=== PATIENT | female | born 2005 | race Caucasian/White ===

== ENCOUNTER → 2024-02-13 09:59 | Outpatient (REF) | payer BC, SELFPAY | LOC: CLAB 09:59 | PROVIDERS: ATTENDING PHYSICIAN Emergency Medicine | DX: J02.9 Acute pharyngitis, unspecified (principal) | CPT/HCPCS: 87070 ==

== ENCOUNTER 2024-02-13 10:25 | Emergency (ER) | payer BC, SELFPAY ==
[2024-02-13 10:29] VITALS: BP 149/85
--- NOTE | 2024-02-13 11:00 | ED.GENMED ---
History of Present Illness
General
Chief Complaint: Throat Problem
Time Seen by Provider: 02/13/24 10:30
Travel History
Have you had any contact with someone who has COVID-19?: No
Do you have any symptoms of coronavirus? Fever > 100 degrees, chills, cough, shortness of breath, sore throat, loss of taste or smell, muscle aches, or headache?: Yes
Symptoms:: see note
History of Present Illness
History of Present Illness:
19-year-old otherwise healthy female presents to the emergency department for evaluation of sore throat over the past 3 to 4 days. Her mother provided her with a old prescription of amoxicillin of which she is taking 4 doses and symptoms have not
improved. Denies any coughing, fevers, or chills. Voice appears to be somewhat altered today.
Past History
Past History
ED Past Medical History: Asthma
ED Past Surgical History: None
Social History
Tobacco: Non-smoker
Alcohol: None
Drug: None
Personal: Single
Living: with family
Employment: Student
Family History
Family History: Asthma
Review of Systems
Review of Systems
Allergies reviewed?: Yes
All Other Systems: ROS reviewed and negative except as documented in HPI and ROS
Phy Exam
Physical Exam
Physical Exam:
GEN: Well appearing, NAD, WDWN
HEENT: Oral mucosa moist, no scleral icterus. Massive uvular edema, uvula is midline however there is asymmetric erythema of the soft palate primarily on the left, no uvular deviation. Oropharynx is minimally visualized, no exudates
Cardiac: Regular rate
Lung: No respiratory distress, no tachypnea
MSK: No gross deformity or injuries
Skin: Good color, no pallor or jaundice, no rashes
Neuro: AO x3, moves all extremities freely
Psych: Calm, cooperative
Course
Orders/Labs/Results
Orders:
Orders
02/13/24 10:58
CT Neck With Iv Contrast Urgent
Comment:
Reason For Exam: suspected parapharyngeal abscess
Dexamethasone Sod Phosphate [Decadron] 6 mg IV NOW STA
Ketorolac [Toradol] 15 mg IV NOW STA
02/13/24 10:59
Test Result ONCE
02/13/24 11:02
Basic Metabolic Panel Urgent
Complete Blood Count/With Diff Urgent
HCG, Serum Qualitative Screen Urgent
02/13/24 13:05
Ampicillin/Sulbactam 3 G [Unasyn] 3 gm 0.9% Sodium Chloride 100 ml [Nss] 100 ml IV NOW
02/13/24 13:15
Ampicillin/Sulbactam 3 G [Unasyn] 3 gm 0.9% Sodium Chloride 100 ml [Nss] 100 ml IV NOW
Abnormal Lab Results
02/13/24
11:02
WBC 16.0 H 10^3/uL
(4.8-10.8)
MCHC 32.1 L g/dL
(33.0-37.0)
Absolute Neuts (auto) 12.4 H 10^3/uL
(1.4-6.5)
Absolute Monos (auto) 0.9 H 10^3/uL
(0.1-0.6)
Neutrophils % 77.4 H %
(42.2-75.2)
Lymphocytes % 14.0 L %
(20.5-51.1)
02/13/24 11:02
02/13/24 11:02
Vital Signs
Initial and Last Documented VS:
Initial Vital Signs
Temp Pulse Resp BP Pulse Ox
98.4 F 110 16 149/85 98
02/13/24 10:29 02/13/24 10:29 02/13/24 10:29 02/13/24 10:29 02/13/24 10:29
Last Documented Vital Signs
Temp Pulse Resp BP Pulse Ox
98.4 F 110 16 149/85 98
02/13/24 10:29 02/13/24 10:29 02/13/24 10:29 02/13/24 10:29 02/13/24 10:29
MDM/Problems Addressed
MDM/Problems Addressed:
CT was obtained due to the massive uvular edema and inability to visualize the oropharynx to rule out parapharyngeal abscess, fortunately this revealed no fluid collections. Patient's symptoms did improve mildly with IV NSAIDs and steroids. Will
start her on Augmentin and discontinue amoxicillin, 5-day course of steroids will be sent with the patient as well. She is tolerating secretions and oral fluids this is suitable for discharge
*Critical Care Note
Total Time (30-74mins, 75-104mins- exclusive of procedures): Not Applicable
ED Attending Note
-
Portions of this chart may have been created with voice recognition software.� Occasional wrong word or��sound alike� substitutions may have occurred due to the inherent limitations of voice recognition software.
Discharge Plan
Departure
Patient Disposition: Home (Routine Discharge)
Date of Disposition: 02/13/24
Time of Disposition: 13:05
Patient with high blood pressure during this ER visit?: No
Discharge Problem:
Uvulitis
Instructions: Sore Throat, Adult (DC)
Prescriptions:
New
amoxicillin-pot clavulanate 875-125 mg tablet
1 tab PO BID 7 Days Qty: 14 0RF
prednisone 20 mg tablet
40 mg PO DAILY 5 Days Qty: 10 0RF
No Action
cetirizine 10 MG tablet
10 mg PO DAILY
albuterol sulfate 1 PUFF HFA aerosol inhaler
2 - 4 puff inhalation R Q4HPRN PRN (Reason: shortness of breath or cough) Qty: 2 6RF
Rx Instructions:
Take 2-4 puffs every 4 hours as needed for cough or breathing trouble
Control
1 tab PO DAILY
montelukast 10 MG tablet
10 mg PO QPM Qty: 30 0RF
prednisone 10 MG tablet
10 mg PO .TAPER Qty: 57 0RF
Rx Instructions:
Take 60mg daily x2 days, 50mg daily x3days, 40mg daily x3days,
30mg daily x3days, 20mg daily x3days,
10mg daily x3days
ycuxcbjqzob-taxxahtui-sfcgcfiy [Trelegy Ellipta] 1 EACH blister with device
1 ea IH DAILY Qty: 1 0RF
levalbuterol HCl 0.63 MG/3 ML solution for nebulization
0.63 mg inhalation R Q4HPRN PRN (Reason: wheezing,difficulty breathing) Qty: 1 0RF
prednisone 10 MG tablet
10 mg PO .TAPER Qty: 30 0RF
Rx Instructions:
Take 40mg daily x3days, 30mg daily x3days,
20mg daily x3days, 10mg daily x3days.
fluticasone propionate 1 SPRAY spray,suspension
1 spray intranasal DAILY Qty: 1 0RF
Referrals:
Yoel Summers DO [Family Provider] -
Activity Restrictions/Additional Instructions:
Begin the antibiotics tonight
Start the steroids tomorrow
Return if symptoms worsen
Interventions
Interventions:
ED-EENT Assessment Last Done: 02/13/24 11:13
ED- Pulmonary Assessment Last Done: 02/13/24 11:13
[2024-02-13 11:12] LABS: % Basophils 0.9 % (0-2); % Immature Granulocytes 0.3 % (0-0.5); % Monocytes 5.4 % (1.7-9.3); % Neutrophils 77.4 % (42.2-75.2); Absolute Basophils 0.1 10^3/uL (0-0.2); Absolute Eosinophils 0.3 10^3/uL (0-0.7); Absolute Lymphocytes 2.2 10^3/uL (1.2-3.4); Absolute Monocytes 0.9 10^3/uL (0.1-0.6); Absolute Neutrophils 12.4 10^3/uL (1.4-6.5); Hematocrit 40.5 % (37.0-47.0); Mean Corp Hgb Conc. 32.1 g/dL (33.0-37.0); Mean Corpuscular Volume 90.2 fL (81.0-99.0); Mean Platelet Volume 9.2 fL (7.4-10.4); Nucleated Red Blood Cells % 0 %; Platelet Count 358 10^3/uL (130-400); Red Blood Cell Count 4.49 10^6/uL (4.20-5.40); Red Cell Dist. Width 13.4 % (11.5-14.5)
[2024-02-13] MEDS: TORADOL 15 MG IV (11:13)
[2024-02-13] MEDS: DECADRON 6 MG IV (11:13)
[2024-02-13 11:22] LABS: HCG, Serum Qualitative Screen Negative
[2024-02-13 11:27] LABS: Blood Urea Nitrogen 11 mg/dl (7-17); Calcium 9.1 mg/dl (8.4-10.2); Carbon Dioxide 23 mmol/L (22-30); Chloride 106 mmol/L (98-107); Glucose 88 mg/dl (70-99); Potassium 3.6 mmol/L (3.5-5.1); Sodium 136 mmol/L (135-145); eGFR > 60.00
[2024-02-13] MEDS: UNASYN IV (13:53)
== END 2024-02-13 14:25 | disposition home or self-care (01) ==
LOC: EMR 10:25
PROVIDERS: Physician Assistant; EMERGENCY PHYSICIAN Emergency Medicine; FAMILY PHYSICIAN Pediatrics
DX: K12.2 Cellulitis and abscess of mouth (principal); J45.909 Unspecified asthma, uncomplicated
CPT/HCPCS: 99284; 96365; 96375; 70491; 80048; 84703; 85025; Q9967

== ENCOUNTER 2024-06-07 11:07 | Inpatient (IN) | payer BC, SELFPAY ==
[2024-06-07] VITALS (20 sets, daily range): BP systolic 78–127; BP diastolic 44–103; BMI 36.7; BMI 39.5
[2024-06-07] MEDS: TYLENOL 1000 MG PO (06:19)
--- NOTE | 2024-06-07 06:20 | ED.GENMED ---
History of Present Illness
General
Chief Complaint: Abdominal Symptoms
Source: patient and family
Time Seen by Provider: 06/07/24 06:06
History of Present Illness
History of Present Illness:
19-year-old female presents with not feeling well. Symptoms started 2 days ago with her just not feeling very well. She had a little bit of left chest discomfort. She also just felt weak and tired and dizzy. She then began vomiting and developed
a fever. She does report a mild cough. She does report some left chest pain under her left breast. Denies pleuritic pain. No leg swelling. Does have history of asthma. States she feels a little short of breath when she lays on her left side
and feels like her asthma. Is not nauseous right now. No diarrhea. No abdominal pain. No back pain. No dysuria.
Past History
Past History
ED Past Medical History: Asthma and Psychiatric
ED Past Surgical History: Tonsilectomy
Social History
Tobacco: Non-smoker
Alcohol: None
Drug: None
Personal: Single
Living: with family
Employment: Student
Family History
Family History: Asthma
Phy Exam
Physical Exam
Physical Exam:
CONSTITUTIONAL Patient alert and oriented to person, place and time. Well-appearing. Vital signs reviewed. Febrile
HEAD atraumatic, normocephalic.
EYES eyelids normal to inspection, Extraocular muscles intact, Conjunctiva normal, Sclera normal.
NECK normal range of motion, Trachea midline, no jugular venous distention.
RESPIRATORY CHEST No respiratory distress noted, Chest expansion equal, Bilateral breath sounds clear.
CARDIOVASCULAR regular and tachycardic
ABDOMEN abdomen nontender, Bowel sounds normal. No distention.
BACK normal inspection, no obvious deformities, no CVA tenderness
UPPER EXTREMITY range of motion normal, Motor strength normal, no cyanosis, no edema.
LOWER EXTREMITY range of motion normal, Motor strength normal, no cyanosis, no edema.
NEURO Speech normal, No focal motor deficits, Compa coma scale 15, Memory normal, Cranial Nerves intact to screening exam.
SKIN skin warm, dry, and normal in color.
PSYCHIATRIC patient oriented to person place and time, Normal affect.
Course
Orders/Labs/Results
Orders:
Orders
06/07/24 Breakfast
Regular
At Your Request: Full Participation
06/07/24 06:08
0.9% Sodium Chloride 1000 ml [Nss] 1,000 ml IV BOLUS
06/07/24 06:09
Acetaminophen [Tylenol] 1,000 mg PO NOW STA
06/07/24 06:11
Ondansetron Injectable [Zofran] 4 mg IV NOW STA
06/07/24 06:14
Test Result ONCE
06/07/24 06:19
0.9% Sodium Chloride 1000 ml [Nss] 1,000 ml IV BOLUS
Acetaminophen [Tylenol] 1,000 mg PO NOW STA
06/07/24 06:23
CR Chest - 2 Views Urgent
Comment:
Reason For Exam: fever, L cp
06/07/24 06:26
Complete Blood Count/With Diff Urgent
Comprehensive Metabolic Panel Urgent
HCG, Serum Qualitative Screen Urgent
Manual Differential Urgent
TSH Reflex To Free T4 Urgent
Comment: ADD ON
06/07/24 07:02
0.9% Sodium Chloride 1000 ml [Nss] 1,000 ml IV BOLUS
06/07/24 07:09
Add On- LAB Urgent
Tests Added?: hcg serum
06/07/24 07:35
Azithromycin 500 mg/250 ml [Zithromax Infusion] 500 mg in 250 ml IV NOW
CefTRIAXone [Rocephin] 1,000 mg IV NOW STA
06/07/24 08:15
Potassium Chloride [KCl] 40 meq PO NOW STA
06/07/24 08:50
EKG [Electrocardiogram (*1)] Routine
Reason for Study: Tachycardia
Levalbuterol [Xopenex 0.63 mg Inhalant Solution] 0.63 mg INH R Q6HPRN PRN
06/07/24 08:51
Xopenex Reason for Use As Directed
Reason for ordering Xopenex instead of Albuterol: tachycardia
06/07/24 08:53
Blood Culture Routine
JENI Source: Blood/Venous
Specimen Description:
Sputum Culture [Respiratory Culture/Gram Stain] Routine
JENI Source: Sputum
Specimen Description:
06/07/24 09:02
Xopenex Reason for Use As Directed
Reason for ordering Xopenex instead of Albuterol: tachycardia
06/07/24 09:24
COVID-19 Antigen Routine
Source: Nasal Swab
Influenza A+B Rapid Molecular Routine
JENI Source: Nasal Swab
Specimen Description:
06/07/24 10:39
Admit/Transfer Patient As Directed
Co-Sign Provider:
Level of Care: Inpatient admission
Assign to:: Telemetry
Physician / Group: Abdi Gallego
Diagnosis: Sepsis Pneumonia r/o PE
Reason for Telemetry: Arrhythmia
Date to Stop Telemetry: 06/10/24
Time to Stop Telemetry: 11:00
Reason for Hospitalization: Sepsis Pneumonia r/o PE
Expected length of stay greater than two midnights?: Yes
ELOS- Estimated Length of Stay in days: 2
I certify the patient meets the requirements for IP care: Yes
CT Chest Pe Study Routine
Comment:
Reason For Exam: PE
06/07/24 10:42
0.9% Sodium Chloride 1000 ml [Nss] 1,000 ml IV BOLUS
06/07/24 10:43
Code Status As Directed
Resuscitation Status: Full Code
06/07/24 10:55
Add On- LAB Routine
Tests Added?: TSH reflex T4
06/07/24 11:00
Flush (0.9% Sodium Chloride) [Flush (Nss)] See Dose Instructions IV PER PROTOCOL
06/07/24 11:07
Lactic Acid Routine
06/07/24 11:51
Acetaminophen [Tylenol] 650 mg PO Q6HPRN PRN
Ibuprofen [Motrin] 400 mg PO BIDPRN PRN
Morphine Sulfate 2 mg IV Q4HPRN PRN
Oxycodone [Roxicodone] 5 mg PO Q4HPRN PRN
Prochlorperazine [Compazine] 10 mg IV Q6HPRN PRN
06/07/24 11:51
Activity As Directed
Activity Level: With Assistance
Intake/ Output As Directed
Frequency: Per unit guidelines
Vital Signs As Directed
Frequency: Per unit guidelines
O2 Therapy [RESP] Routine
Titrate/Wean O2 to maintain O2 sat greater than (%): 92
DX Deep Vein Thrombosis Video Routine
06/07/24 12:17
Urinalysis Reflex To Culture Routine
Urine Microscopic Reflex Cult Routine
Legionella Urinary Antigen Routine
JENI Source: Urine
Specimen Description:
Strep pneumoniae Antigen Routine
JENI Source: Urine
Specimen Description:
Urine Culture Routine
JENI Source: U
Specimen Description:
06/07/24 14:00
Levalbuterol [Xopenex 0.63 mg Inhalant Solution] 0.63 mg INH R TID
06/07/24 16:00
Heparin 5,000 units SC Q8
06/07/24 18:00
Montelukast Sodium [Singulair] 10 mg PO QPM
06/07/24 22:00
norethindrone-e.estradiol-iron [Junel FE 12/18 (28)] See Dose Instructions PO HS
06/08/24 06:00
BMP [Basic Metabolic Panel] IN AM
Complete Blood Count/No Diff IN AM
Magnesium IN AM
Phos [Phosphorus] IN AM
06/08/24 08:00
Azithromycin 500 mg/250 ml [Zithromax Infusion] 500 mg in 250 ml IV Q24H
Budesonide/Formoterol 160/4.5 [Symbicort 160/4.5 Mcg Inhaler] 2 puff INH R BID
CefTRIAXone [Rocephin] 1,000 mg IV DAILY
Cetirizine HCl [Zyrtec] 10 mg PO DAILY
Pantoprazole [Protonix] 40 mg PO DAILY
Sertraline HCl [Zoloft] 75 mg PO DAILY
06/09/24 06:00
BMP [Basic Metabolic Panel] IN AM
Complete Blood Count/No Diff IN AM
Magnesium IN AM
Phos [Phosphorus] IN AM
06/10/24 06:00
BMP [Basic Metabolic Panel] IN AM
Complete Blood Count/No Diff IN AM
Magnesium IN AM
Phos [Phosphorus] IN AM
06/10/24 11:00
DC Protocol for Telemetry ONCE
06/11/24 06:00
BMP [Basic Metabolic Panel] IN AM
Complete Blood Count/No Diff IN AM
Magnesium IN AM
Phos [Phosphorus] IN AM
06/12/24 06:00
BMP [Basic Metabolic Panel] IN AM
Complete Blood Count/No Diff IN AM
Magnesium IN AM
Phos [Phosphorus] IN AM
06/13/24 06:00
BMP [Basic Metabolic Panel] IN AM
Complete Blood Count/No Diff IN AM
Magnesium IN AM
Phos [Phosphorus] IN AM
06/14/24 06:00
BMP [Basic Metabolic Panel] IN AM
Complete Blood Count/No Diff IN AM
Magnesium IN AM
Phos [Phosphorus] IN AM
Abnormal Lab Results
06/07/24
06:26
WBC 25.0 H 10^3/uL
(4.8-10.8)
RBC 4.09 L 10^6/uL
(4.20-5.40)
Hct 35.7 L %
(37.0-47.0)
Abs Neuts (Manual) 23.5 H 10^3/uL
(1.4-6.5)
Segmented Neutrophils 84 H %
(42-75)
Band Neutrophils 10 H %
(0-3)
Lymphocytes (Manual) 4 L %
(20-51)
Sodium 132 L mmol/L
(135-145)
Potassium 3.3 L mmol/L
(3.5-5.1)
Glucose 139 H mg/dl
(70-99)
Total Bilirubin 1.5 H mg/dl
(0.2-1.3)
06/07/24 06:26
06/07/24 06:26
Vital Signs
Initial and Last Documented VS:
Initial Vital Signs
Temp Pulse Resp BP Pulse Ox
103.0 F H 146 17 127/66 95
06/07/24 05:49 06/07/24 05:49 06/07/24 05:49 06/07/24 05:49 06/07/24 05:49
Last Documented Vital Signs
Temp Pulse Resp BP Pulse Ox
98.3 F 112 28 94/59 96
06/07/24 12:01 06/07/24 13:00 06/07/24 13:00 06/07/24 13:00 06/07/24 12:01
MDM/Problems Addressed
MDM/Problems Addressed:
Fever, vomiting, tachycardia, pneumonia, bandemia
*Radiology
Radiology exam reviewed: preliminary read by ED provider (Pneumonia)
*Pulse Oximetry
Patient hypoxic: no
*Finish Carpenter Interpretation
Rate: tachycardiac
Interpretation: abnormal
Rhythm: sinus
*Critical Care Note
Total Time (30-74mins, 75-104mins- exclusive of procedures): 30 minutes
Data Reviewed
Review of Other/Old Records Reveals: Discharge Summary
Source: patient and family
Further Testing Considered But Not Given:
Consider blood cultures but do not clinically suspect bacteremia
Patient Management
Discussion with other providers: Hospitalist
Escalation/DeEscalation of care consider admission/obs:
19-year-old female presents with fever, cough, chest discomfort. Found to be febrile with leukocytosis. Chest x-ray shows pneumonia. Remains tachycardic. Likely is moving good air but does have a history of severe asthma attacks in the past. IV
antibiotics. Admit
ED Attending Note
-
Portions of this chart may have been created with voice recognition software.� Occasional wrong word or��sound alike� substitutions may have occurred due to the inherent limitations of voice recognition software.
Discharge Plan
Departure
Patient Disposition: Admit
Date of Disposition: 06/07/24
Time of Disposition: 08:01
Admit to: Med/Surg
Presentation/result/management discussed w/ accepting MD/DO: Hospitalist
Discharge Problem:
Pneumonia, Sepsis
Interventions
Interventions:
*Risk Screen - Suicide Last Done: 06/07/24 05:49
*General Assessment Last Done: 06/07/24 05:49
*Neglect/Abuse Screening Last Done: 06/07/24 05:49
ED- Fall Risk Assessment Last Done: 06/07/24 05:49
*ED COVID-19 Vaccine History Last Done: 06/07/24 05:49
DR-Oxmude-Bhzinolfat Assessment Last Done: 06/07/24 06:15
[2024-06-07] MEDS: NSS 1000 IV ×3 (06:25→11:57)
[2024-06-07 06:33] LABS: Hematocrit 35.7 % (37.0-47.0); Mean Corp Hgb Conc. 33.6 g/dL (33.0-37.0); Mean Corpuscular Hgb 29.3 pg (27.0-31.0); Mean Corpuscular Volume 87.3 fL (81.0-99.0); Platelet Count 245 10^3/uL (130-400); Red Blood Cell Count 4.09 10^6/uL (4.20-5.40); Red Cell Dist. Width 13.6 % (11.5-14.5)
[2024-06-07 06:48] LABS: ALT (SGPT) 17 U/L (0-35); AST (SGOT) 20 U/L (14-36); Albumin 3.7 g/dl (3.5-5.0); Alkaline Phosphatase 68 U/L (38-126); Blood Urea Nitrogen 10 mg/dl (7-17); Calcium 8.8 mg/dl (8.4-10.2); Carbon Dioxide 22 mmol/L (22-30); Chloride 98 mmol/L (98-107); Estimated Creatinine Clearance > 125 ml/min; Glucose 139 mg/dl (70-99); Potassium 3.3 mmol/L (3.5-5.1); Sodium 132 mmol/L (135-145); Total Bilirubin 1.5 mg/dl (0.2-1.3); Total Protein 6.3 g/dl (6.3-8.2); eGFR > 60.00
[2024-06-07] MEDS: ROCEPHIN 1000 MG IV (07:47)
[2024-06-07 07:56] LABS: Absolute Neutrophils -Man Diff 23.5 10^3/uL (1.4-6.5); Band Neutrophils 10 % (0-3); Lymphocytes 4 % (20-51); Monocytes 2 % (2-9); Segmented Neutrophils 84 % (42-75)
[2024-06-07] MEDS: ZITHROMAX INFUSION 250 IV (07:56)
[2024-06-07 07:57] LABS: Normal RBC Morphology Yes; Platelets Checked Yes; Total Cells Counted 100
--- NOTE | 2024-06-07 08:13 | HPS.HSE ---
Family Physician
-
Family Physician: Yoel Summers
Chief Complaint
-
Left Sided Pleuritic Chest Pain
History of Present Illness
19 female morbid obesity asthma presents with new onset left-sided pleuritic chest pain 1 day duration. Reported being in her usual state of health when suddenly she became short of breath nauseous vomiting and develop left-sided chest pain
exacerbated with deep inspiration. Nausea vomiting since resolved however left-sided pleuritic chest pain persists. ED eval significant for sinus tachycardia fever leukocytosis. Chest x-ray suggestive of left-sided pneumonia. Possible S1Q3T3
noted on EKG. Patient otherwise stable respiratory status on room air fever resolved with Tylenol. Blood pressure low normotensive denies lightheadedness headache.
Medical History
Past Medical History
Past Medical History: Reports Other (As above)
Past Surgical History: Reports Other (As above)
Social History
Tobacco: Non-smoker
Alcohol: None
Drug: None
Personal: Single
Living: With Family
Employment: Other (student)
Family History
Family History: Not pertinent (reviewed)
Allergies / Home Medications
Allergies reflects when Allergies were last updated in [facility].
Home Medications with original date entered in [facility]
Allergy/Medication List:
Allergies
Allergy/AdvReac Type Severity Reaction Status Date / Time
pollen extracts Allergy Shortness Verified 06/07/24 05:49
of Breath
pet dander Allergy Shortness Uncoded 06/07/24 05:49
of Breath
Home Medications
cetirizine 10 mg tablet 10 mg PO DAILY Allergies 03/12/21
norethindrone 1 mg-ethinyl estradiol 20 mcg (21)-iron 75 mg (7) tablet (Junel FE 12/18 (28)) 1 tab PO HS Hormonal agent ##0 06/11/21
levalbuterol HCl 0.63 mg/3 mL solution for nebulization 0.63 mg (3 mL) inhalation R Q4HPRN PRN wheezing,difficulty breathing ##1 06/13/21
albuterol sulfate 90 mcg/actuation aerosol inhaler 2 puff inhalation R Q4HPRN PRN shortness of breath or cough 06/07/24
fluticasone furoate 200 mcg-vilanterol 25 mcg/dose inhalation powder (Breo Ellipta) 1 inh inhalation R DAILY Lung/Breathing Issues 06/07/24
ibuprofen 400 mg tablet 400 mg PO BIDPRN PRN mild pain 06/07/24
montelukast 10 mg tablet 10 mg PO QPM Lung/Breathing Issues 06/07/24
sertraline 25 mg tablet 75 mg PO DAILY Depression 06/07/24
Review of Systems
-
A 12 point ROS was completed and negative except as noted: Yes
Constitutional: Reports Other (as below)
Physical Exam
Vital Signs
Vital Signs
Temp Pulse Resp BP Pulse Ox
99.3 F 126 23 107/65 95
06/07/24 07:55 06/07/24 07:05 06/07/24 06:08 06/07/24 07:05 06/07/24 05:49
Physical Exam
General: Other (as below)
Laboratory Results
-
06/07/24 06:26
06/07/24 06:26
Laboratory Results
Total Bilirubin 1.5 mg/dl (0.2-1.3) H 06/07/24 06:26
AST 20 U/L (14-36) 06/07/24 06:26
ALT 17 U/L (0-35) 06/07/24 06:26
Alkaline Phosphatase 68 U/L (38-126) 06/07/24 06:26
Impression/Plan
-
ROS
General: Denies fever chills night sweats unexpected weight loss
Neuro: Denies seizure shaking loss of consciousness dizziness vertigo
Psych: denies depression hallucinations confusion manic episodes
Endocrine: Denies polyuria polydipsia polyphagia heat/cold intolerance
HEENT: Denies blindness visual disturbances epistaxis
Pulmonary: Reports left-sided pleuritic chest pain shortness of breath
Cardiovascular: denies chest pain palpitations leg swelling
Hematology: denies signs symptoms of anemia easy bruising/bleeding
Gastrointestinal: Reports nausea vomiting since resolved
Genito-Urinary: denies retention incontinence dysuria
Musculoskeletal: denies joint pain weakness
Dermatology: denies rash laceration bruising
Physical Exam
General: No pallor, cyanosis, or jaundice. Morbidly obese
HEENT: Throat clear. PERRLA Normocephalic atraumatic
NECK: Supple. No JVD Carotid Bruits
RESPIRATORY: Lungs clear to auscultation. No crackles wheezes stridor
CVS: S1, S2 normal. RRR. No murmur, rub or gallop.
ABDOMEN: Soft, non-tender. No distension. BS+/normal.
EXTREMITIES: No peripheral cyanosis or edema. No calf tenderness bilateral
IMPRESSION:
19 female morbid obesity asthma presents with new onset left-sided pleuritic chest pain 1 day duration. Reported being in her usual state of health when suddenly she became short of breath nauseous vomiting and develop left-sided chest pain
exacerbated with deep inspiration. Nausea vomiting since resolved however left-sided pleuritic chest pain persists. ED eval significant for sinus tachycardia fever leukocytosis. Chest x-ray suggestive of left-sided pneumonia. Possible S1Q3T3
noted on EKG. Patient otherwise stable respiratory status on room air fever resolved with Tylenol. Blood pressure low normotensive denies lightheadedness headache.
PLAN:
#Sepsis pneumonia (leukocytosis fever tachycardia)
Telemetry admit
Check CT chest possible PE S1Q3T3 noted on EKG
O2 supplementation as necessary, currently stable respiratory status on room air
Follow cultures check Legionella strep pneumo antigens
COVID flu negative
Continue empiric ceftriaxone and azithromycin
Pain control Tylenol oxycodone, morphine severe breakthrough pain
As needed antiemetic Compazine
Check lactic acid TSH
Low normotensive received 1 L bolus, additional 1 L ordered
#Asthma
No wheezing noted
Xopenex as needed shortness of breath wheezing avoiding albuterol due to tachycardia
Scheduled Xopenex for symptomatic relief shortness of breath
Continue home Breo Ellipta
DVT prophylaxis heparin
GI prophylaxis Protonix
Meds reconciled and resume as appropriate
Full code
Discussed with patient and and patient's grandmother Kaylynn at bedside.
I spent a total of 80 minutes with the patient or on the floor. More than 50% of this time involved counseling and coordination of care.
[2024-06-07 08:19] LABS: HCG, Serum Qualitative Screen Negative
[2024-06-07] MEDS: KCL 40 MEQ PO (09:03)
[2024-06-07 09:49] LABS: COVID-19 Antigen Negative (Negative)
[2024-06-07 11:28] LABS: Lactic Acid 1.1 mmol/L (0.7-2.0)
[2024-06-07 12:40] LABS: TSH Reflex To Free T4 1.27 uIU/ml (0.47-4.68)
[2024-06-07 12:55] LABS: Urine Albumin Negative (Neg - Trace); Urine Bilirubin Negative (Negative); Urine Character Clear (Clear); Urine Color Yellow; Urine Glucose Negative (Negative); Urine Ketone Negative (Negative); Urine Leukocyte 1+ (Negative); Urine Nitrite Negative (Negative); Urine Occult Blood Negative (Negative); Urine Urobilinogen Negative (Neg - 1+)
[2024-06-07 13:30] LABS: Urine Squamous Cell >30 /LPF (Few)
[2024-06-07 13:31] LABS: Urine Bacteria Moderate (Negative); Urine Red Blood Cell 0-2 /HPF (0-2)
[2024-06-07] MEDS: XOPENEX 0.63 MG INHALANT SOLUTION INH ×2 (13:54→18:06)
[2024-06-07] MEDS: ROXICODONE 5 MG PO ×2 (14:33→19:37)
[2024-06-07] MEDS: SINGULAIR 10 MG PO (17:55)
--- NOTE | 2024-06-07 19:18 | PTCARENOTE ---
Received patient from ED, accompanied by family. Patient states left pleuritic pain is 5/10 from 7/10, declines any pain med at the moment. Patient denies any shortness of breath or any other discomfort. Plan of care discussed with patient.
[2024-06-07] MEDS: TYLENOL 650 MG PO (19:36)
[2024-06-07] MEDS: NSS 250 IV (23:23)
[2024-06-08] MEDS: ROXICODONE 5 MG PO ×3 (00:44→14:48)
[2024-06-08 03:05] VITALS: BP 99/56
[2024-06-08] MEDS: TYLENOL 650 MG PO ×2 (03:24→15:45)
[2024-06-08 06:23] LABS: Hemoglobin 10.4 g/dL (12.0-16.0); Mean Corp Hgb Conc. 33.5 g/dL (33.0-37.0); Mean Corpuscular Hgb 29.9 pg (27.0-31.0); Mean Corpuscular Volume 89.1 fL (81.0-99.0); Mean Platelet Volume 9.8 fL (7.4-10.4); Platelet Count 203 10^3/uL (130-400); Red Blood Cell Count 3.48 10^6/uL (4.20-5.40); Red Cell Dist. Width 13.7 % (11.5-14.5); White Blood Cell Count 16.9 10^3/uL (4.8-10.8)
--- NOTE | 2024-06-08 06:48 | W.PN.HOSP.TC ---
Today's Communication/Plan
-
cont abx
pulm eval requested
prn antiemetics
pain control
Assessment / Plan
Assessment / Plan
Physical Exam
General: No pallor, cyanosis, or jaundice. Morbidly obese
HEENT: Throat clear. PERRLA Normocephalic atraumatic
NECK: Supple. No JVD Carotid Bruits
RESPIRATORY: Lungs clear to auscultation. No crackles wheezes stridor
CVS: S1, S2 normal. RRR. No murmur, rub or gallop.
ABDOMEN: Soft, non-tender. No distension. BS+/normal.
EXTREMITIES: No peripheral cyanosis or edema. No calf tenderness bilateral
Neuro: AOx3
Psych: Calm
IMPRESSION:
19 female morbid obesity asthma presents with new onset left-sided pleuritic chest pain 1 day duration. Reported being in her usual state of health when suddenly she became short of breath nauseous vomiting and develop left-sided chest pain
exacerbated with deep inspiration. Nausea vomiting since resolved however left-sided pleuritic chest pain persists. ED eval significant for sinus tachycardia fever leukocytosis. Chest x-ray suggestive of left-sided pneumonia. Possible S1Q3T3
noted on EKG. Patient otherwise stable respiratory status on room air fever resolved with Tylenol. Blood pressure low normotensive denies lightheadedness headache.
PLAN:
#Sepsis pneumonia (leukocytosis fever tachycardia)
Telemetry admit
CT chest neg for PE, suggestive left sided pna, concern for possible underlying malignancy. Pulm eval requested
O2 supplementation as necessary, currently stable respiratory status on room air
Follow cultures
Legionella strep pneumo antigens neg
COVID flu negative
Continue empiric ceftriaxone and azithromycin
Pain control Tylenol oxycodone, morphine severe breakthrough pain
As needed antiemetic Compazine
Mild lactic acidosis resolved with IVF boluses
Pulm eval requested
#Asthma
No wheezing noted
Xopenex as needed shortness of breath wheezing avoiding albuterol due to tachycardia
Scheduled Xopenex for symptomatic relief shortness of breath
Continue home Breo Ellipta
#hypophosphatemia
monitor and replete as necessary
DVT prophylaxis heparin
GI prophylaxis Protonix
Full code
Discussed with patient and her mother Arnulfo BALDWIN at bedside
I spent a total of 55 minutes with the patient or on the floor. More than 50% of this time involved counseling and coordination of care.
Anticipated Discharge: 24 - 48 hours
Subjective/Interval History
-
Date of Service: June 08, 2024
Stable respiratory status on room air. Left sided pleuritic chest pain persists. Patient also had nausea vomiting this morning. Patient's mother Arnulfo RN present during evaluation.
Objective Data
-
Labs:
Laboratory Results
06/08/24
05:23
WBC 16.9 H
Hgb 10.4 L
Hct 31.0 L
Plt Count 203
Sodium Pending
Potassium Pending
Chloride Pending
Carbon Dioxide Pending
BUN Pending
Creatinine Pending
Glucose Pending
Calcium Pending
Vital Signs:
Vital Signs
Temp Pulse Resp BP Pulse Ox
101.1 F H 114 16 99/56 93
06/08/24 03:05 06/08/24 03:05 06/08/24 03:05 06/08/24 03:05 06/08/24 03:05
I&O
06/06/24 06/07/24 06/08/24
06:59 06:59 06:59
Intake Total 960 / 960
Balance 960 / 960
[2024-06-08 06:59] LABS: Blood Urea Nitrogen 8 mg/dl (7-17); Calcium 8.6 mg/dl (8.4-10.2); Carbon Dioxide 20 mmol/L (22-30); Chloride 107 mmol/L (98-107); Estimated Creatinine Clearance > 125 ml/min; Glucose 99 mg/dl (70-99); Magnesium 1.8 mg/dl (1.6-2.3); Phosphorus 2.1 mg/dl (2.5-4.5); Potassium 3.7 mmol/L (3.5-5.1); Sodium 134 mmol/L (135-145); eGFR > 60.00
[2024-06-08 07:10] VITALS: BP 116/75
[2024-06-08] MEDS: XOPENEX 0.63 MG INHALANT SOLUTION INH ×3 (07:26→19:57)
[2024-06-08] MEDS: SYMBICORT 160/4.5 MCG INHALER 2 PUFF INH ×2 (07:26→19:57)
[2024-06-08] MEDS: ZYRTEC 10 MG PO (08:48)
[2024-06-08] MEDS: PROTONIX 40 MG PO (08:48)
[2024-06-08] MEDS: ROCEPHIN 1000 MG IV (08:48)
[2024-06-08] MEDS: STERILE WATER FOR INJECTION 10 ML IV (08:48)
[2024-06-08] MEDS: ZOLOFT 75 MG PO (09:09)
[2024-06-08] MEDS: COMPAZINE 10 MG IV (09:09)
[2024-06-08] MEDS: ZITHROMAX INFUSION 250 IV (09:11)
[2024-06-08] MEDS: POTASSIUM PHOSPHATE 259.0909 MEQ IV (10:02)
[2024-06-08] MEDS: MAGNESIUM SULFATE 50 IV (10:02)
--- NOTE | 2024-06-08 10:38 | CON.PUL ---
Addendum entered and electronically signed by Prestno Randall MD 06/08/24 14:30:
Patient on Breo at home, continue with Symbicort while she is inpatient with TID Xopenex and when pt ready for DC, then discharge back home on her home inhalers.
Original Note:
Consultation
Consultation Request
Date/Time Consultation Requested: 06/08/2024908
Date/Time Consultation Performed: 06/08/2024 - 1004
Requesting Provider: Dr. Gallego
Performing Provider: Dr. Randall
Reason for Consultation: Abnormal CTA Chest/Pneumonia
Medical History
-
Chief Complaint: Vomiting
History of Present Illness:
19-year-old female non-smoker who presents with multiple episodes of vomiting since 1 day HAND TRIMMER. No abdominal pain or diarrhea reported. She also reported left-sided chest pain, associated with SOB. She was febrile in the ER to 103 �F, tachycardic
to 146 (ST), breathing at 17 breaths/min, BP 127/66 and saturating 95% on room air. Initial labs showed severe leukocytosis to 25, Hb 12, 10% bands, sodium 132, potassium 3.3, T. bili 1.5, and COVID antigen negative. Sputum culture and blood
culture collected, and CXR showed a left midlung opacity suspicious for pneumonia which was confirmed on CTA chest which showed no acute PE and ALEIDA pneumonia with right-sided nodular opacities. There is no obvious hilar or mediastinal
lymphadenopathy. She was given antibiotics in the ER with ceftriaxone/azithromycin, + potassium and IV fluids with NS 0.9% x 1L, and admitted to the hospitalist service. Because the airspace opacity appeared as an 8 cm wedge-shaped confluent
parenchymal lesion with other confluent airspace opacities in the lingula, pulmonary now consulted for additional management/recommendations.
When I saw the patient, she was sitting in bed in no acute distress on room air breathing comfortably. Her main complaint is left-sided chest pain. Her mother, Arnulfo, was at bedside. I answered all of her mother's questions. The patient says her
symptoms began on Wednesday, 2 days ago. She was nauseous, vomiting, which then led to chest pain that night. She also started a fever yesterday morning and then she been having fevers off and on since that time. Prior to Wednesday, she had felt in
her usual state of health. She does not think she aspirated any of her vomit. She denies any recent sick contacts or recent travel. She currently denies SOB, headache, abdominal pain, nausea, vomiting, fevers or chills. She does get shortness of
breath when her chest pain starts.
PMHx: History of asthma, history of strep throat, anxiety, reported history of meningitis
PSHx: Sinus surgery, T&A
Past Medical History
Past Medical History: Other (Above as per HPI)
Past Surgical History: Other (Above as per HPI)
Social History
Tobacco: Non-smoker
Alcohol: Occasional (social)
Drug: None
Personal: Single
Living: With Family
Employment: Other (Student)
Family History
Family History: Reviewed & Not Pertinent
Allergies / Home Medications
Allergies
Allergy/AdvReac Type Severity Reaction Status Date / Time
pollen extracts Allergy Shortness Verified 06/07/24 05:49
of Breath
pet dander Allergy Shortness Uncoded 06/07/24 05:49
of Breath
Home Medications
�Medication �Instructions �Recorded �Confirmed �Last Taken �Type
cetirizine 10 mg tablet 10 mg PO DAILY Allergies 03/12/21 06/07/24 03/11/21 History
norethindrone 1 mg-ethinyl 1 tab PO HS Hormonal agent ##0 06/11/21 06/07/24 Unknown History
estradiol 20 mcg (21)-iron 75 mg
(7) tablet (June FE 12/18 ())
levalbuterol HCl 0.63 mg/3 mL 0.63 mg (3 mL) inhalation R Q4HPRN 06/13/21 06/07/24 Unknown Rx
solution for nebulization PRN wheezing,difficulty breathing
##1
albuterol sulfate 90 mcg/actuation 2 puff inhalation R Q4HPRN PRN 06/07/24 06/07/24 Unknown History
aerosol inhaler shortness of breath or cough
fluticasone furoate 200 1 inh inhalation R DAILY 06/07/24 06/07/24 Unknown History
mcg-vilanterol 25 mcg/dose Lung/Breathing Issues
inhalation powder (Breo Ellipta)
ibuprofen 400 mg tablet 400 mg PO BIDPRN PRN mild pain 06/07/24 06/07/24 06/07/24 History
montelukast 10 mg tablet 10 mg PO QPM Lung/Breathing Issues 06/07/24 06/07/24 Unknown History
sertraline 25 mg tablet 75 mg PO DAILY Depression 06/07/24 06/07/24 Unknown History
Review of Systems
-
History Source: Patient
All other systems: Negative unless noted
Vitals / Labs / Diagnostic Testing
Vital Signs
Temp Pulse Resp BP Pulse Ox
99.6 F 101 16 116/75 97
06/08/24 07:10 06/08/24 07:28 06/08/24 07:28 06/08/24 07:10 06/08/24 07:28
Lab Data
06/08/24 05:23
06/08/24 05:23
Microbiology
06/07/24 12:17 Urine Urine Culture - Final
06/07/24 16:44 Sputum Respiratory Culture - Final
06/07/24 16:44 Sputum Gram Stain - Final
06/07/24 12:17 Urine Legionella Urinary Antigen - Final
Negative for Legionella pneumophila Serogroup 1 antigen.
A negative result does not rule out the possiblity of
Legionella infection due to other serogroups or species of
Legionella. Clinical correlation is recommended.
06/07/24 12:17 Urine Streptococcus pneumoniae Antigen (M - Final
Negative for Streptococcus pneumoniae antigen.
A negative result does not exclude infection with
Streptococcus pneumoniae. Clinical correlation is
recommended.
06/07/24 09:24 Nasal Swab Influenza Types A & B (EM) - Final
Negative for Influenza A & B, NAAT
Negative results must be combined with clinical observations
and patient history.
Nucleic Acid Amplification test (NAAT)performed on the
[employer] platform.
Diagnostic Testing:
Physical Exam
-
HEENT: Normocephalic, Anicteric and Other (Thick neck)
Cardiovascular: Peripheral Edema (Negative) and Other (Tachycardic)
Respiratory: Wheeze (Negative), Rales (Left hemithorax from the left base-left middle lung field), Rhonchi (Negative) and Non-Labored Respirations
GI: Soft, Distended (Abdominal obesity), Non Tender and Normal Bowel Sounds
Neurology: AO x 3 and Tremors (Negative)
Skin: Warm and Dry
General: Respiratory Distress (Negative), Comfortable, Chills (Negative) and Sweats (Negative)
Assessment
-
Assessment: 19-year-old female non-smoker who presents with multiple episodes of vomiting since 1 day HAND TRIMMER. No abdominal pain or diarrhea reported. She also reported left-sided chest pain, associated with SOB. She was febrile in the ER to 103 �F,
tachycardic to 146 (ST), breathing at 17 breaths/min, BP 127/66 and saturating 95% on room air. Initial labs showed severe leukocytosis to 25, Hb 12, 10% bands, sodium 132, potassium 3.3, T. bili 1.5, and COVID antigen negative. Sputum culture and
blood culture collected, and CXR showed a left midlung opacity suspicious for pneumonia which was confirmed on CTA chest which showed no acute PE and ALEIDA pneumonia with right-sided nodular opacities. There is no obvious hilar or mediastinal
lymphadenopathy. She was given antibiotics in the ER with ceftriaxone/azithromycin, + potassium and IV fluids with NS 0.9% x 1L, and admitted to the hospitalist service. Because the airspace opacity appeared as an 8 cm wedge-shaped confluent
parenchymal lesion with other confluent airspace opacities in the lingula, pulmonary now consulted for additional management/recommendations.
Chronic conditions HAND TRIMMER: History of asthma, history of strep throat, anxiety, reported history of meningitis
Impression:
#Sepsis without shock due to left upper lobe CAP
#CAP involving anterior ALEIDA + lingula
#Nodular opacities in the right lung - suspected to be due to her PNA
#Anemia
#Hyponatremia
#Hypophosphatemia
#Elevated T. bili
#Abnormal urinalysis suspicious for UTI with +1 leukocyte esterase and 11�15 urine WBC
#History of elevated IgE (915 on 07/08/2021) concerning for underlying asthma, which pt reports a Hx of
#Personal history of COVID-19 (October 2021)
Plan:
- Abnormal CTA chest is likely due to pneumonia and not malignancy or other etiology, especially given the fact that recent CT neck on 02/13/2024 showed clear lungs, although unable to assess if the right-sided nodular opacities were present on that
CT neck study
- Continue with antibiotics with ceftriaxone/azithromycin and plan for 7 days total Abx
- Follow-up infectious workup with blood and sputum cultures as well as Legionella/strep pneumoniae urine antigens
- Repeat imaging with CXR in 4-6 weeks, and consider repeating CT chest in 3-6 months to follow-up not only left-sided pneumonia but also the right-sided nodular opacities resolution
- Maintain SpO2 >90-94% with supplemental O2 as needed
- Incentive spirometer encouraged
- Pain control
- Replete electrolytes with K>4, Mg>2
- Maintain euglycemia with goal BG >100 and <180
- prn nebulized bronchodilators
- DVT ppx
Pulmonary service will continue to follow along.
Total time spent today was 55 minutes for this encounter. Time includes reviewing laboratory test/imaging results, reviewing pertinent medical records, obtaining and reviewing medical history, performing an appropriate exam, ordering medications,
tests and procedures. Time also includes documentation of this encounter, coordinating patient care and communicating with other healthcare professionals. Total time does not include separately billed tests performed on this date of service.
Data:
CTA chest 06-07-2024:
IMPRESSION:
1). There is no pulmonary embolism
2).There is an 8 cm wedge-shaped area of confluent parenchymal airspace disease in the left upper lobe extending from the superior left hilum to the anterior and lateral pleural surfaces with associated 6 cm near contiguous multinodular area of
airspace disease in the lingula and a 5.5 cm confluent area of parenchymal airspace disease at the basilar portion of the lingula. Given the patient's history of fever and left sided chest pain, I favor that this is pneumonia, however, underlying
neoplasm is not excluded on the basis of this imaging and follow-up to resolution and/or bronchoscopy may be useful for further evaluation.
3). There are more subtle areas of nodular density in the right lung and superior segment of the left lower lobe which are also probably inflammatory but should be followed to resolution to exclude more aggressive pathology
[2024-06-08 11:00] VITALS: BP 108/71
--- NOTE | 2024-06-08 14:27 | CM ---
Initial assessment completed with patient with mother in room. Patient lives with her mother in a trailer home with 2 steps to enter. Patient has a nebulizer machine, no in-home services. 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 No psychiatric hospitalizations. Pharmacy is [facility] on [address] in [place] and PCP is Dr. Yoel Summers @ [facility]. Anticipate no needs at discharge.
[2024-06-08 15:15] VITALS: BP 112/71
[2024-06-08] MEDS: MORPHINE SULFATE 2 MG IV (15:49)
[2024-06-08] MEDS: SINGULAIR 10 MG PO (17:21)
[2024-06-08 19:57] VITALS: BP 106/71
[2024-06-08] MEDS: MOTRIN 400 MG PO (22:50)
[2024-06-08 23:15] VITALS: BP 108/68
[2024-06-09 03:26] VITALS: BP 115/71
[2024-06-09 06:32] LABS: Mean Corp Hgb Conc. 32.4 g/dL (33.0-37.0); Mean Corpuscular Hgb 28.5 pg (27.0-31.0); Mean Corpuscular Volume 88.1 fL (81.0-99.0); Mean Platelet Volume 9.6 fL (7.4-10.4); Platelet Count 256 10^3/uL (130-400); Red Blood Cell Count 3.86 10^6/uL (4.20-5.40); White Blood Cell Count 14.9 10^3/uL (4.8-10.8)
[2024-06-09 06:53] LABS: Blood Urea Nitrogen 7 mg/dl (7-17); Calcium 8.9 mg/dl (8.4-10.2); Carbon Dioxide 23 mmol/L (22-30); Chloride 107 mmol/L (98-107); Estimated Creatinine Clearance > 125 ml/min; Glucose 76 mg/dl (70-99); Phosphorus 4.8 mg/dl (2.5-4.5); Potassium 4.2 mmol/L (3.5-5.1); Sodium 139 mmol/L (135-145); eGFR > 60.00
[2024-06-09] MEDS: SYMBICORT 160/4.5 MCG INHALER 2 PUFF INH ×2 (07:16→18:07)
[2024-06-09] MEDS: XOPENEX 0.63 MG INHALANT SOLUTION INH ×3 (07:16→18:07)
[2024-06-09 07:17] VITALS: BP 125/63
--- NOTE | 2024-06-09 07:29 | W.PN.HOSP.TC ---
Today's Communication/Plan
-
cont abx
possible discharge tomorrow if patient remains stable/continues to improve
Assessment / Plan
Assessment / Plan
Physical Exam
General: No pallor, cyanosis, or jaundice. Morbidly obese
HEENT: Throat clear. PERRLA Normocephalic atraumatic
NECK: Supple. No JVD Carotid Bruits
RESPIRATORY: Lungs clear to auscultation. No crackles wheezes stridor
CVS: S1, S2 normal. RRR. No murmur, rub or gallop.
ABDOMEN: Soft, non-tender. No distension. BS+/normal.
EXTREMITIES: No peripheral cyanosis or edema. No calf tenderness bilateral
Neuro: AOx3
Psych: Calm
IMPRESSION:
19 female morbid obesity asthma presents with new onset left-sided pleuritic chest pain 1 day duration. Reported being in her usual state of health when suddenly she became short of breath nauseous vomiting and develop left-sided chest pain
exacerbated with deep inspiration. Nausea vomiting since resolved however left-sided pleuritic chest pain persists. ED eval significant for sinus tachycardia fever leukocytosis. Chest x-ray suggestive of left-sided pneumonia. Possible S1Q3T3
noted on EKG. Patient otherwise stable respiratory status on room air fever resolved with Tylenol. Blood pressure low normotensive denies lightheadedness headache.
PLAN:
#Sepsis pneumonia (leukocytosis fever tachycardia)
Telemetry admit
CT chest neg for PE, suggestive left sided pna, concern for possible underlying malignancy. Pulm eval requested
O2 supplementation as necessary, currently stable respiratory status on room air
Follow cultures NGTD
Legionella strep pneumo antigens neg
COVID flu negative
Continue empiric ceftriaxone, completed 3 days azithromycin
Pain control Tylenol oxycodone, morphine severe breakthrough pain
As needed antiemetic Compazine
Mild lactic acidosis resolved with IVF boluses
Pulm eval appreciated
#Asthma
No wheezing noted
Xopenex as needed shortness of breath wheezing avoiding albuterol due to tachycardia
Scheduled Xopenex for symptomatic relief shortness of breath
Continue home Breo Ellipta
#hypophosphatemia
monitor and replete as necessary
DVT prophylaxis heparin
GI prophylaxis Protonix
Full code
Discussed with patient and her mother Arnulfo at bedside
I spent a total of 55 minutes with the patient or on the floor. More than 50% of this time involved counseling and coordination of care.
Anticipated Discharge: Within 24 hours
Subjective/Interval History
-
Date of Service: June 09, 2024
Reports significant improvement, resolution pleuritic chest pain. Patient's mother Arnulfo present during evaluation.
Objective Data
-
Labs:
Laboratory Results
06/09/24
05:59
WBC 14.9 H
Hgb 11.0 L
Hct 34.0 L
Plt Count 256 D
Sodium 139
Potassium 4.2
Chloride 107
Carbon Dioxide 23
BUN 7
Creatinine 0.5 L
Glucose 76
Calcium 8.9
Vital Signs:
Vital Signs
Temp Pulse Resp BP Pulse Ox
98.0 F 98 16 125/63 97
06/09/24 07:17 06/09/24 07:17 06/09/24 07:17 06/09/24 07:17 06/09/24 07:17
I&O
06/08/24 06/09/24 06/10/24
06:59 06:59 06:59
Intake Total 960 / 960 960 / 960
Balance 960 / 960 960 / 960
[2024-06-09] MEDS: ZOLOFT 75 MG PO (08:08)
[2024-06-09] MEDS: ZYRTEC 10 MG PO (08:09)
[2024-06-09] MEDS: PROTONIX 40 MG PO (08:09)
[2024-06-09] MEDS: ROCEPHIN 1000 MG IV (08:09)
[2024-06-09] MEDS: STERILE WATER FOR INJECTION 10 ML IV (08:09)
[2024-06-09] MEDS: ZITHROMAX INFUSION 250 IV (08:10)
[2024-06-09 10:59] VITALS: BP 121/66
--- NOTE | 2024-06-09 12:27 | W.PN.PUL3 ---
Today's Communication / Plan
-
Antibiotics to plan for 7 days total
Follow-up infectious workup
Up OOB as tolerated
Repeat imaging with CXR in about 6 weeks
Pulmonary service will continue to briefly follow along; she can likely be discharged in next 1-2 days
Assessment
-
Assessment: 19-year-old female non-smoker who presents with multiple episodes of vomiting since 1 day BIOCHEMIST. No abdominal pain or diarrhea reported. She also reported left-sided chest pain, associated with SOB. She was febrile in the ER to 103 �F,
tachycardic to 146 (ST), breathing at 17 breaths/min, BP 127/66 and saturating 95% on room air. Initial labs showed severe leukocytosis to 25, Hb 12, 10% bands, sodium 132, potassium 3.3, T. bili 1.5, and COVID antigen negative. Sputum culture and
blood culture collected, and CXR showed a left midlung opacity suspicious for pneumonia which was confirmed on CTA chest which showed no acute PE and ALEIDA pneumonia with right-sided nodular opacities. There is no obvious hilar or mediastinal
lymphadenopathy. She was given antibiotics in the ER with ceftriaxone/azithromycin, + potassium and IV fluids with NS 0.9% x 1L, and admitted to the hospitalist service. Because the airspace opacity appeared as an 8 cm wedge-shaped confluent
parenchymal lesion with other confluent airspace opacities in the lingula, pulmonary now consulted for additional management/recommendations.
Chronic conditions BIOCHEMIST: History of asthma, history of strep throat, anxiety, reported history of meningitis
Impression:
#Sepsis without shock due to left upper lobe CAP
#CAP involving anterior ALEIDA + lingula
#Nodular opacities in the right lung - suspected to be due to her PNA
#Anemia
#Hyponatremia - resolved
#Hypophosphatemia - resolved
#Elevated T. bili
#Abnormal urinalysis suspicious for UTI with +1 leukocyte esterase and 11�15 urine WBC
#History of elevated IgE (915 on 07/08/2021) concerning for underlying asthma, which pt reports a Hx of
#Personal history of COVID-19 (October 2021)
Plan:
- Abnormal CTA chest is likely due to pneumonia and not malignancy or other etiology, especially given the fact that recent CT neck on 02/13/2024 showed clear lungs, although unable to assess if the right-sided nodular opacities were present on that
CT neck study
- Continue with antibiotics with ceftriaxone/azithromycin and plan for 7 days total Abx
- Follow-up infectious workup with blood and sputum cultures; Legionella/strep pneumoniae urine antigens both negative
- Repeat imaging with CXR in 4-6 weeks, and consider repeating CT chest in 3-6 months to follow-up not only left-sided pneumonia but also the right-sided nodular opacities resolution; will need to have a risk vs benefit discussion as she is very
young and I would like to avoid radiation
- Maintain SpO2 >90-94% with supplemental O2 as needed
- Incentive spirometer encouraged
- Pain control
- Replete electrolytes with K>4, Mg>2
- Maintain euglycemia with goal BG >100 and <180
- prn nebulized bronchodilators
- DVT ppx
Pulmonary service will continue to follow along. Outpatient follow-up will be arranged.
Total time spent today was 35 minutes for this encounter. Time includes reviewing laboratory test/imaging results, reviewing pertinent medical records, obtaining and reviewing medical history, performing an appropriate exam, ordering medications,
tests and procedures. Time also includes documentation of this encounter, coordinating patient care and communicating with other healthcare professionals. Total time does not include separately billed tests performed on this date of service.
Data:
CTA chest 06-07-2024:
IMPRESSION:
1). There is no pulmonary embolism
2).There is an 8 cm wedge-shaped area of confluent parenchymal airspace disease in the left upper lobe extending from the superior left hilum to the anterior and lateral pleural surfaces with associated 6 cm near contiguous multinodular area of
airspace disease in the lingula and a 5.5 cm confluent area of parenchymal airspace disease at the basilar portion of the lingula. Given the patient's history of fever and left sided chest pain, I favor that this is pneumonia, however, underlying
neoplasm is not excluded on the basis of this imaging and follow-up to resolution and/or bronchoscopy may be useful for further evaluation.
3). There are more subtle areas of nodular density in the right lung and superior segment of the left lower lobe which are also probably inflammatory but should be followed to resolution to exclude more aggressive pathology
Subjective Data
-
Date of Service:
Date of Service: June 09, 2024
Chief Complaint: Pulmonary Follow Up
Subjective:
Patient seen and evaluated today at bedside. Febrile yesterday to 100.4 �F in the afternoon. Leukocytosis improving today. She is on room air breathing comfortably. No acute events reported overnight.
Review of Systems
General: Other (Negative unless mentioned above)
Objective Data
Data Reviewed
Vital Signs / I&O / Oxygen:
Vital Signs
Temp Pulse Resp BP Pulse Ox
97.9 F 73 18 121/66 98
06/09/24 10:59 06/09/24 10:59 06/09/24 10:59 06/09/24 10:59 06/09/24 10:59
Intake and Output
06/08/24 06/09/24 06/10/24
06:59 06:59 06:59
Intake Total 960 / 960 960 / 960
Balance 960 / 960 960 / 960
SaO2 98
Physical Exam
General: Respiratory Distress (Negative), Comfortable and Chills (negative)
HEENT: Normocephalic and Anicteric
Cardiovascular: S1-S2 and Peripheral Edema (negative)
Respiratory: Wheeze (negative), Crackles (Left base), Rhonchi (negative) and Non-Labored Respirations
GI: Soft, Distended (abdominal obesity), Non Tender and Normal Bowel Sounds
Neurology: Awake and Alert
Skin: Warm, Dry and Jaundice
Labs/Micro/Reports
Lab Data
06/09/24 05:59
06/09/24 05:59
Microbiology
06/07/24 17:04 Blood/Venous Blood Culture - Preliminary
No Growth in 24 hours- Final report to follow
06/07/24 12:17 Nose MRSA Screen - Final
No Methicillin Resistant Staphylococcus aureus isolated.
06/07/24 12:17 Urine Urine Culture - Final
06/07/24 16:44 Sputum Respiratory Culture - Final
06/07/24 16:44 Sputum Gram Stain - Final
06/07/24 12:17 Urine Legionella Urinary Antigen - Final
Negative for Legionella pneumophila Serogroup 1 antigen.
A negative result does not rule out the possiblity of
Legionella infection due to other serogroups or species of
Legionella. Clinical correlation is recommended.
06/07/24 12:17 Urine Streptococcus pneumoniae Antigen (M - Final
Negative for Streptococcus pneumoniae antigen.
A negative result does not exclude infection with
Streptococcus pneumoniae. Clinical correlation is
recommended.
06/07/24 09:24 Nasal Swab Influenza Types A & B (EM) - Final
Negative for Influenza A & B, NAAT
Negative results must be combined with clinical observations
and patient history.
Nucleic Acid Amplification test (NAAT)performed on the
[employer] platform.
[2024-06-09 15:24] VITALS: BP 113/68
[2024-06-09] MEDS: MOTRIN 400 MG PO (15:34)
--- NOTE | 2024-06-09 15:55 | PN.CDI ---
CDI
- -
CDI:
Physician Documentation Request
Admit Date: 06/07/24 11:07
Dear Doctor Julián,
Patient admitted for sepsis.
06/07 Potassium level: 3.3
710 Potassium chloride 40 meq PO administered
Based on the above, could you clarify in the progress notes, the appropriate diagnosis, if significant, that supports the above abnormalities and additional evaluation, monitoring and/or treatment rendered:
Hypokalemia
Abnormal lab value insignificant
Other
Use of terms such as suspected, likely, concern for, or probable (associated with a specific diagnosis that is being evaluated, monitored, or treated as if it exists) are acceptable and can be coded in the inpatient setting, when documented at the
time of discharge.
Thank you,
Meghan Tineo RN, BSN
CDI Specialist
Available via Pinch text
Please use your independent medical judgment in providing your response.
[2024-06-09] MEDS: SINGULAIR 10 MG PO (17:04)
[2024-06-09 19:10] VITALS: BP 110/66
[2024-06-09 23:05] VITALS: BP 152/78
[2024-06-10 00:04] LABS: Urine Albumin Negative (Neg - Trace); Urine Bilirubin Negative (Negative); Urine Character Clear (Clear); Urine Color Yellow; Urine Glucose Negative (Negative); Urine Ketone Negative (Negative); Urine Leukocyte Negative (Negative); Urine Nitrite Negative (Negative); Urine Occult Blood Negative (Negative); Urine Urobilinogen 1+ (Neg - 1+)
[2024-06-10 03:05] VITALS: BP 98/58
--- NOTE | 2024-06-10 07:07 | W.PN.HOSP.TC ---
Today's Communication/Plan
-
discharge
Assessment / Plan
Assessment / Plan
Physical Exam
General: No pallor, cyanosis, or jaundice. Morbidly obese
HEENT: Throat clear. PERRLA Normocephalic atraumatic
NECK: Supple. No JVD Carotid Bruits
RESPIRATORY: Lungs clear to auscultation. No crackles wheezes stridor
CVS: S1, S2 normal. RRR. No murmur, rub or gallop.
ABDOMEN: Soft, non-tender. No distension. BS+/normal.
EXTREMITIES: No peripheral cyanosis or edema. No calf tenderness bilateral
Neuro: AOx3
Psych: Calm
IMPRESSION:
19 female morbid obesity asthma presents with new onset left-sided pleuritic chest pain 1 day duration. Reported being in her usual state of health when suddenly she became short of breath nauseous vomiting and develop left-sided chest pain
exacerbated with deep inspiration. Nausea vomiting since resolved however left-sided pleuritic chest pain persists. ED eval significant for sinus tachycardia fever leukocytosis. Chest x-ray suggestive of left-sided pneumonia. Possible S1Q3T3
noted on EKG. Patient otherwise stable respiratory status on room air fever resolved with Tylenol. Blood pressure low normotensive denies lightheadedness headache.
PLAN:
#Sepsis pneumonia (leukocytosis fever tachycardia)
Telemetry admit
CT chest neg for PE, suggestive left sided pna, concern for possible underlying malignancy. Pulm eval requested
O2 supplementation as necessary, currently stable respiratory status on room air
Follow cultures NGTD
Legionella strep pneumo antigens neg
COVID flu negative
Continue empiric ceftriaxone, completed 3 days azithromycin, ceftriaxone completed, Augmentin started planned for total 7 days abx, 06/13 last day
Pain control Tylenol oxycodone, morphine severe breakthrough pain
As needed antiemetic Compazine
Mild lactic acidosis resolved with IVF boluses
Pulm eval appreciated repeat CXR outpt in 6 wks, abx for total 7 days of treatment
#Asthma
No wheezing noted
Xopenex as needed shortness of breath wheezing avoiding albuterol due to tachycardia
Scheduled Xopenex for symptomatic relief shortness of breath
Continue home Breo Ellipta
#hypophosphatemia
#hypokalemia
monitor and replete as necessary
DVT prophylaxis heparin
GI prophylaxis Protonix
Full code
Medically stable for discharge home with outpatient follow up recommendations.
Total Time Preparing Discharge ___45____ minutes including examination of the patient, summary of the hospital stay, instructions for continuing care to all relevant caregivers; and preparation of discharge records, prescriptions, and referral
forms if necessary.
Anticipated Discharge: Today
Subjective/Interval History
-
Date of Service: June 10, 2024
Seen and examined at bedside in no acute distress sitting up comfortably in bed. Reports overall feeling well. Denies new acute issues at this time. eager to go home.
Objective Data
-
Labs:
Laboratory Results
06/10/24
06:38
WBC Pending
Hgb Pending
Hct Pending
Plt Count Pending
Sodium Pending
Potassium Pending
Chloride Pending
Carbon Dioxide Pending
BUN Pending
Creatinine Pending
Glucose Pending
Calcium Pending
Vital Signs:
Vital Signs
Temp Pulse Resp BP Pulse Ox
98.2 F 71 16 98/58 99
06/10/24 03:05 06/10/24 03:05 06/10/24 03:05 06/10/24 03:05 06/10/24 03:05
I&O
06/09/24 06/10/24 06/11/24
06:59 06:59 06:59
Intake Total 960 / 960 570 / 570
Balance 960 / 960 570 / 570
[2024-06-10] MEDS: MOTRIN 400 MG PO (07:13)
[2024-06-10 07:22] VITALS: BP 116/72
[2024-06-10 07:41] LABS: Hematocrit 33.6 % (37.0-47.0); Mean Corp Hgb Conc. 32.7 g/dL (33.0-37.0); Mean Corpuscular Hgb 28.5 pg (27.0-31.0); Mean Platelet Volume 9.8 fL (7.4-10.4); Platelet Count 292 10^3/uL (130-400); Red Blood Cell Count 3.86 10^6/uL (4.20-5.40); White Blood Cell Count 9.4 10^3/uL (4.8-10.8)
[2024-06-10 08:03] LABS: Blood Urea Nitrogen 11 mg/dl (7-17); Calcium 9.2 mg/dl (8.4-10.2); Carbon Dioxide 22 mmol/L (22-30); Chloride 105 mmol/L (98-107); Estimated Creatinine Clearance > 125 ml/min; Glucose 78 mg/dl (70-99); Magnesium 1.6 mg/dl (1.6-2.3); Phosphorus 4.9 mg/dl (2.5-4.5); Potassium 4.7 mmol/L (3.5-5.1); Sodium 138 mmol/L (135-145); eGFR > 60.00
[2024-06-10] MEDS: PROTONIX 40 MG PO (08:03)
[2024-06-10] MEDS: ZOLOFT 75 MG PO (08:03)
[2024-06-10] MEDS: ROCEPHIN 1000 MG IV (08:03)
[2024-06-10] MEDS: ZYRTEC 10 MG PO (08:03)
[2024-06-10] MEDS: STERILE WATER FOR INJECTION 10 ML IV (08:04)
[2024-06-10] MEDS: SYMBICORT 160/4.5 MCG INHALER 2 PUFF INH (08:08)
[2024-06-10] MEDS: AUGMENTIN 875 MG/125 MG 1 TABLET PO (10:44)
[2024-06-10 11:42] VITALS: BP 105/61
--- NOTE | 2024-06-10 13:06 | W.PN.PUL3 ---
Today's Communication / Plan
-
Doing well, continue prednisone taper at discharge
Discussed outpatient pulmonary FU in 2-[address] Yusuf
Discharge planning per team
Assessment
-
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 No abdominal pain or diarrhea reported. She also reported left-sided chest pain, associated with SOB. She was febrile in the ER to 103 �F, tachycardic
to 146 (ST), breathing at 17 breaths/min, BP 127/66 and saturating 95% on room air. Initial labs showed severe leukocytosis to 25, Hb 12, 10% bands, sodium 132, potassium 3.3, T. bili 1.5, and COVID antigen negative. Sputum culture and blood
culture collected, and CXR showed a left midlung opacity suspicious for pneumonia which was confirmed on CTA chest which showed no acute PE and ALEIDA pneumonia with right-sided nodular opacities. There is no obvious hilar or mediastinal
lymphadenopathy. She was given antibiotics in the ER with ceftriaxone/azithromycin, + potassium and IV fluids with NS 0.9% x 1L, and admitted to the hospitalist service. Because the airspace opacity appeared as an 8 cm wedge-shaped confluent
parenchymal lesion with other confluent airspace opacities in the lingula, pulmonary now consulted for additional management/recommendations.
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
Impression:
#Sepsis without shock due to left upper lobe CAP
#CAP involving anterior ALEIDA + lingula
#Nodular opacities in the right lung - suspected to be due to her PNA
#Anemia
#Hyponatremia - resolved
#Hypophosphatemia - resolved
#Elevated T. bili
#Abnormal urinalysis suspicious for UTI with +1 leukocyte esterase and 11�15 urine WBC
#History of elevated IgE (915 on 07/08/2021) concerning for underlying asthma, which pt reports a Hx of
#Personal history of COVID-19 (October 2021)
Plan:
- Abnormal CTA chest is likely due to pneumonia and not malignancy or other etiology, especially given the fact that recent CT neck on 02/13/2024 showed clear lungs, although unable to assess if the right-sided nodular opacities were present on that
CT neck study
- Continue with antibiotics with ceftriaxone/azithromycin and plan for 7 days total Abx
- Follow-up infectious workup with blood and sputum cultures; Legionella/strep pneumoniae urine antigens both negative
- Repeat imaging with CXR in 4-6 weeks, and consider repeating CT chest in 3-6 months to follow-up not only left-sided pneumonia but also the right-sided nodular opacities resolution; will need to have a risk vs benefit discussion as she is very
young and I would like to avoid radiation
- Maintain SpO2 >90-94% with supplemental O2 as needed
- Incentive spirometer encouraged
- Pain control
- Replete electrolytes with K>4, Mg>2
- Maintain euglycemia with goal BG >100 and <180
- prn nebulized bronchodilators
- DVT ppx
Outpatient follow-up will be arranged. We discussed arrangement today.
Data:
CTA chest 06-07-2024:
IMPRESSION:
1). There is no pulmonary embolism
2).There is an 8 cm wedge-shaped area of confluent parenchymal airspace disease in the left upper lobe extending from the superior left hilum to the anterior and lateral pleural surfaces with associated 6 cm near contiguous multinodular area of
airspace disease in the lingula and a 5.5 cm confluent area of parenchymal airspace disease at the basilar portion of the lingula. Given the patient's history of fever and left sided chest pain, I favor that this is pneumonia, however, underlying
neoplasm is not excluded on the basis of this imaging and follow-up to resolution and/or bronchoscopy may be useful for further evaluation.
3). There are more subtle areas of nodular density in the right lung and superior segment of the left lower lobe which are also probably inflammatory but should be followed to resolution to exclude more aggressive pathology
Total time spent today was 35 minutes for this encounter. Time includes reviewing laboratory test/imaging results, reviewing pertinent medical records, obtaining and reviewing medical history, performing an appropriate exam, ordering medications,
tests and procedures. Time also includes documentation of this encounter, coordinating patient care and communicating with other healthcare professionals. Total time does not include separately billed tests performed on this date of service.
Subjective Data
-
Date of Service:
Date of Service: June 10, 2024
Chief Complaint: Pulmonary Follow Up
Subjective:
Doing well, stable on RA
No new complaints
Ready to go home
Objective Data
Data Reviewed
Vital Signs / I&O / Oxygen:
Vital Signs
Temp Pulse Resp BP Pulse Ox
98.7 F 77 18 105/61 98
06/10/24 11:42 06/10/24 11:42 06/10/24 11:42 06/10/24 11:42 06/10/24 11:42
Intake and Output
06/09/24 06/10/24 06/11/24
06:59 06:59 06:59
Intake Total 960 / 960 570 / 570
Balance 960 / 960 570 / 570
SaO2 98
Physical Exam
General: Respiratory Distress (Negative), Comfortable and Chills (negative)
HEENT: Normocephalic and Anicteric
Cardiovascular: S1-S2 and Peripheral Edema (negative)
Respiratory: Wheeze (negative), Crackles (Left base), Rhonchi (negative) and Non-Labored Respirations
GI: Soft, Distended (abdominal obesity), Non Tender and Normal Bowel Sounds
Neurology: Awake and Alert
Skin: Warm, Dry and Jaundice
Labs/Micro/Reports
Lab Data
06/10/24 06:38
06/10/24 06:38
Microbiology
06/07/24 17:04 Blood/Venous Blood Culture - Preliminary
No Growth in 48 hours- Final report to follow
06/07/24 12:17 Nose MRSA Screen - Final
No Methicillin Resistant Staphylococcus aureus isolated.
06/07/24 12:17 Urine Urine Culture - Final
06/07/24 16:44 Sputum Respiratory Culture - Final
06/07/24 16:44 Sputum Gram Stain - Final
06/07/24 12:17 Urine Legionella Urinary Antigen - Final
Negative for Legionella pneumophila Serogroup 1 antigen.
A negative result does not rule out the possiblity of
Legionella infection due to other serogroups or species of
Legionella. Clinical correlation is recommended.
06/07/24 12:17 Urine Streptococcus pneumoniae Antigen (M - Final
Negative for Streptococcus pneumoniae antigen.
A negative result does not exclude infection with
Streptococcus pneumoniae. Clinical correlation is
recommended.
06/07/24 09:24 Nasal Swab Influenza Types A & B (EM) - Final
Negative for Influenza A & B, NAAT
Negative results must be combined with clinical observations
and patient history.
Nucleic Acid Amplification test (NAAT)performed on the
[employer] platform.
--- NOTE | 2024-06-10 13:55 | W.DCSUMMARY ---
Discharge Summary
Discharge Data
Date of Admission: 06/07/24
Date of Discharge: 06/10/24
-
Pending Results: No
Discharge Plan
-
Patient Disposition: Home (Routine Discharge)
Discharge Diagnosis/Procedures: Sepsis Pneumonia
Hypomagnesemia and Hypophosphatemia resolved
Condition: Good
Diet: Regular
Activity: As tolerated
Driving Restrictions: As prior to admission
Bathing Restrictions: None
Blood Work: Please repeat CBC BMP Mg and Phos level with primary care provider in 1 week of discharge.
Others Tests: Please repeat Chest X-ray with primary care provider or Pulmonology in 6 weeks of discharge.
Activity Restrictions/Additional Instructions:
Please follow up with primary care provider in 1 week of discharge and Pulmonology in 2-4 weeks of discharge.
Augmentin has been prescribed to complete treatment of pneumonia. Last day of antibiotics is 06/13.
Instructions: Community-Acquired Pneumonia, Adult (DC)
Referrals:
Preston Randall MD [Active] - in two to four weeks
Yoel Summers DO [Family Provider] - in one week
Prescriptions:
New
amoxicillin-pot clavulanate 875-125 mg Tablet
1 tab PO Q12 Qty: 7 0RF
Rx Instructions:
Last day of antibiotics 06/13
Continued
cetirizine 10 MG tablet
10 mg PO DAILY
norethindrone-e.estradiol-iron [Junel FE 12/18 (28)] 1 mg-20 mcg (21)/75 mg (7) Tablet
1 tab PO HS Qty: 0
levalbuterol HCl 0.63 MG/3 ML solution for nebulization
0.63 mg inhalation R Q4HPRN PRN (Reason: wheezing,difficulty breathing) Qty: 1 0RF
ibuprofen 400 mg Tablet
400 mg PO BIDPRN PRN (Reason: mild pain)
sertraline 25 mg Tablet
75 mg PO DAILY
fluticasone furoate-vilanterol [Breo Ellipta] 200-25 mcg/dose Blister With Device
1 inh INHALATION R DAILY
albuterol sulfate 1 PUFF HFA aerosol inhaler
2 puff inhalation R Q4HPRN PRN (Reason: shortness of breath or cough)
Rx Instructions:
Take 2-4 puffs every 4 hours as needed for cough or breathing trouble
montelukast 10 MG tablet
10 mg PO QPM
Discharge Orders:
Discharge Patient (As Directed); Ordered 06/10/24
Ordered By: Abdi Gallego
Discharge Date and Time
Print Language: HEBREW
--- NOTE | 2024-06-10 15:54 | CM ---
Pt dc to home with family. No needs were identified.
== END 2024-06-10 15:23 | disposition home or self-care (01) | DRG 871 ==
LOC: 2 NORTH 11:07
PROVIDERS: Nurse Practitioner Gerontology; ADMITTING PHYSICIAN Internal Medicine; CONSULT PHYSICIAN Internal Medicine Critical Care Medicine; EMERGENCY PHYSICIAN Emergency Medicine; FAMILY PHYSICIAN Pediatrics
DX: A41.9 Sepsis, unspecified organism (principal); J18.9 Pneumonia, unspecified organism; E87.1 Hypo-osmolality and hyponatremia; E87.20 Acidosis, unspecified; E66.01 Morbid (severe) obesity due to excess calories; R07.81 Pleurodynia; E87.6 Hypokalemia; E83.42 Hypomagnesemia; D64.9 Anemia, unspecified; E83.39 Other disorders of phosphorus metabolism; J45.909 Unspecified asthma, uncomplicated; F41.9 Anxiety disorder, unspecified; Z68.39 Body mass index [BMI] 39.0-39.9, adult; Z86.61 Personal history of infections of the central nervous system; Z86.16 Personal history of COVID-19; Z11.52 Encounter for screening for COVID-19
CPT/HCPCS: 71046; 71275; 80048; 80053; 81003; 81015; 83605; 83735; 84100; 84443; 84703; 85025; 85027; 87040; 87070; 87086; 87205; 87449; 87502; 87811; 87899; 93005; 94640; 96361; 96374; 96375; 99291; Q9967

== ENCOUNTER → 2024-07-26 17:00 | Outpatient (REF) | payer BC, SELFPAY | LOC: RAD 17:00 | PROVIDERS: ATTENDING PHYSICIAN Nurse Practitioner Adult Health | DX: J18.9 Pneumonia, unspecified organism (principal) | CPT/HCPCS: 71046 ==

== ENCOUNTER → 2025-08-24 08:54 | Outpatient (REF) | payer BC, SELFPAY | LOC: WDC 08:54 | PROVIDERS: ATTENDING PHYSICIAN Nurse Practitioner | DX: R59.0 Localized enlarged lymph nodes (principal) | CPT/HCPCS: 76642 ==

== ENCOUNTER 2025-10-27 07:17 | Emergency (ER) | payer BC, SELFPAY ==
[2025-10-27 07:41] VITALS: BP 129/80
[2025-10-27 08:16] LABS: COVID-19 Antigen Negative (Negative)
--- NOTE | 2025-10-27 08:25 | ED.GENMED ---
History of Present Illness
General
Chief Complaint: Cold/Flu/URI Symptoms
Source: patient
Time Seen by Provider: 10/27/25 07:46
History of Present Illness
History of Present Illness:
20-year-old female with past medical history of asthma presenting to the emergency department for evaluation of sore throat and bilateral ear pain x 1 day of without associated fevers. No known sick contacts, recent travel or recent antibiotics.
No reported cough, GI related symptoms or any other concerns. No medications taken prior to arrival.
Past History
Past History
ED Past Medical History: Asthma and Psychiatric
ED Past Surgical History: Tonsilectomy
Social History
Tobacco: Non-smoker
Alcohol: None
Drug: None
Personal: Single
Living: with family
Employment: Student
Family History
Family History: Asthma
Review of Systems
Review of Systems
All Other Systems: ROS reviewed and negative except as documented in HPI and ROS
Phy Exam
Physical Exam
Physical Exam:
GENERAL: Alert , in no apparent distress
HEAD: Normocephalic atraumatic
EYE: conjunctiva clear
NECK: Supple, no significant adenopathy.
ENT: o/p clr, mmm. No uvula deviation, no stridor or trismus, tolerating secretions, TMs clear bilateral, no effusions
CARDIAC: Regular rate and rhythm
LUNGS: Clear breath sounds bilaterally, no acute respiratory distress, no wheezes/rales/rhonchi
NEUROLOGICAL: Alert and oriented
SKIN: Warm and dry, skin intact.
MUSCULOSKELETAL: well perfused.
PSYCH: Normal and appropriate interaction.
Scores
Heart Failure Risk
Heart Failure Risk Score: Not Applicable
Heart Score for Chest Pain Patients
STEMI patient?: Not applicable
Withdrawal Assessment of Alcohol
Withdrawal Assessment Completed?: Not applicable
Course
Orders/Labs/Results
Orders:
Orders
10/27/25 07:54
COVID-19 Antigen Urgent
Source: Nasal Swab
INF RAPID [Influenza A+B Rapid Molecular] Urgent
JENI Source: Nasal Swab
Specimen Description:
Date Specimen was Collected: 10/27/25
Time Specimen was Collected: 07:53
Rapid Strep Group A Urgent
JENI Source: Throat/Pharynx
Specimen Description:
Date Specimen was Collected: 10/27/25
Time Specimen was Collected: 07:53
Vital Signs
Initial and Last Documented VS:
Initial Vital Signs
Temp Pulse Resp BP Pulse Ox
97.7 F 97 16 129/80 97
10/27/25 07:41 10/27/25 07:41 10/27/25 07:41 10/27/25 07:41 10/27/25 07:41
Last Documented Vital Signs
Temp Pulse Resp BP Pulse Ox
97.7 F 97 16 129/80 97
10/27/25 07:41 10/27/25 07:41 10/27/25 07:41 10/27/25 07:41 10/27/25 08:27
MDM/Problems Addressed
Differential Diagnosis Includes:
Pharyngitis
Sinusitis
Strep Throat
Covid
Flu
Viral Syndrome
Pneumonia
Otitis media/Externa
MDM/Problems Addressed:
20-year-old female presenting to the ER with 1 day of mild URI-like symptoms. Hemodynamically stable here, no acute respiratory distress. COVID flu and strep testing ordered. Suspect viral etiology is most likely. Symptomatic [id number]
care as needed. Anticipate discharge home
*Pulse Oximetry
SaO2: 97
Oxygen Mode of Delivery: Room air
Patient hypoxic: no
*Critical Care Note
Total Time (30-74mins, 75-104mins- exclusive of procedures): Not Applicable
Patient Management
Escalation/DeEscalation of care consider admission/obs:
I did recommend continued [id number] medications for suspected viral etiology COVID flu and strep testing are negative. However given the patient's history of pneumonia, asthma we will prescribe amoxicillin and a prednisone taper to use if
symptoms get worse or if any fevers are to develop. Patient aware of return precautions to the ER, stable for discharge home.
ED Attending Note
-
Portions of this chart may have been created with voice recognition software.� Occasional wrong word or��sound alike� substitutions may have occurred due to the inherent limitations of voice recognition software.
Discharge Plan
Departure
Patient Disposition: Home (Routine Discharge)
Date of Disposition: 10/27/25
Time of Disposition: 08:39
Patient with high blood pressure during this ER visit?: No
Discharge Problem:
Pharyngitis
Instructions: Viral Syndrome (DC)
Prescriptions:
New
amoxicillin 500 mg tablet
500 mg PO BID 10 Days Qty: 20 0RF
prednisone 10 mg Tablet
See Rx Instructions .ROUTE .COMPLEX Qty: 30 0RF
Rx Instructions:
Take By Mouth:
40 mg daily x3 days, 30 mg daily x3 days,
20 mg daily x3 days, 10 mg daily x3 days.
No Action
cetirizine 10 MG tablet
10 mg PO DAILY
norethindrone-e.estradiol-iron [Junel FE 12/18 ()] 1 mg-20 mcg (21)/75 mg (7) Tablet
1 tab PO HS Qty: 0
levalbuterol HCl 0.63 MG/3 ML solution for nebulization
0.63 mg inhalation R Q4HPRN PRN (Reason: wheezing,difficulty breathing) Qty: 1 0RF
ibuprofen 400 mg Tablet
400 mg PO BIDPRN PRN (Reason: mild pain)
sertraline 25 mg Tablet
75 mg PO DAILY
fluticasone furoate-vilanterol [Breo Ellipta] 200-25 mcg/dose Blister With Device
1 inh INHALATION R DAILY
albuterol sulfate 1 PUFF HFA aerosol inhaler
2 puff inhalation R Q4HPRN PRN (Reason: shortness of breath or cough)
Rx Instructions:
Take 2-4 puffs every 4 hours as needed for cough or breathing trouble
montelukast 10 MG tablet
10 mg PO QPM
amoxicillin-pot clavulanate 875-125 mg Tablet
1 tab PO Q12 Qty: 7 0RF
Rx Instructions:
Last day of antibiotics 06/13
Referrals:
Maura Contreras CRNP [Family Provider, Family Practice]
Stand Alone Forms: Return to Work
Interventions
Interventions:
*Risk Screen - Suicide Last Done: 10/27/25 07:41
*General Assessment Last Done: 10/27/25 07:41
*Neglect/Abuse Screening Last Done: 10/27/25 07:41
*ED- Fall Risk Assessment Last Done: 10/27/25 08:55
*ED COVID-19 Vaccine History Last Done: 10/27/25 07:41
*ED Influenza Vaccine History Last Done: 10/27/25 07:41
*Nursing Disposition Last Done: 10/27/25 08:55
ED- Pulmonary Assessment Last Done: 10/27/25 08:00
Discharge Date and Time
Discharge Date/Time: 10/27/25 08:55
Print Language: CITIZEN OF [place]
[2025-10-27 08:40] VITALS: BMI 40.1
== END 2025-10-27 08:55 | disposition home or self-care (01) ==
LOC: EMR 07:17
PROVIDERS: Physician Assistant Medical; EMERGENCY PHYSICIAN Emergency Medicine; FAMILY PHYSICIAN Nurse Practitioner
DX: J02.9 Acute pharyngitis, unspecified (principal); H92.03 Otalgia, bilateral; J45.909 Unspecified asthma, uncomplicated; Z87.01 Personal history of pneumonia (recurrent); Z11.52 Encounter for screening for COVID-19
CPT/HCPCS: 99283; 87070; 87502; 87811; 87880